=== PATIENT | male | born 1945 | race Caucasian/White ===

== ENCOUNTER → 2017-11-29 | Outpatient (CLI) | payer MEDICARE, OTHER ==
[~2017-11-29] MED LIST: ASPI81TA94 PO; CHOL10005 PO; CHOL200021 PO; DIPH0.5D12 IM; LISI-362 PO; MULT-1167 PO; ORP100 PO; PRAV20TA65 PO; ROSU10TA13 PO; UBID200C21 PO; UBID400C2 PO
== END ==
LOC: LAB 07:44
PROVIDERS: ATTEND Emergency Medicine
DX: E78.5 Hyperlipidemia, unspecified (principal)
CPT/HCPCS: 36415; 82465; 83718; 84478